=== PATIENT | female | born 1990 | race African-American/Black ===

== ENCOUNTER 2016-12-05 18:34 | Emergency (ER) | payer OTHER ==
[~2016-12-05] VITALS: Ht 170.2 cm; Wt 61.2 kg
[~2016-12-05 18:34] MED LIST: ZOFRAN ODT4 MG PO
[2016-12-05 19:07] LABS: URINE BILIRUBIN NEGATIVE (Negative); URINE BLOOD NEGATIVE (Negative); URINE COLOR YELLOW; URINE GLUCOSE-RANDOM* NEGATIVE (Negative); URINE KETONES NEGATIVE (Negative); URINE LEUKOCYTES-REFLEX NEGATIVE (Negative); URINE PROTEIN (DIPSTICK) NEGATIVE (Negative); URINE UROBILINOGEN 0.2 E.U./dl (0.2-1.0)
[2016-12-05] MEDS ORDERED: VENTOLIN HFA 1818 GM INH (19:15)
[2016-12-05 19:31] LABS: ABSOLUTE NEUTROPHILS 2.7 thou/uL (1.4-8.2); BASOPHILS 1.4 % (0.0-2.0); EOSINOPHILS 3.4 % (0.0-3.0); HEMATOCRIT 33.7 % (37.0-47.0); HEMOGLOBIN 10.7 gm/dL (12.0-15.0); LYMPHOCYTES 46.3 % (24.0-44.0); MCH 23.7 pg (26.0-34.0); MCHC 31.7 % (28.0-37.0); MCV 74.9 fL (80.0-100.0); MONOCYTES 7.8 % (1.0-8.0); PLATELET COUNT 190 thou/uL (150-400); POLYS 41.1 % (36.0-66.0); RBC 4.49 mil/uL (4.20-5.00); RDW 18.7 % (10.5-14.5); WBC 6.6 thou/uL (4.0-11.0)
[2016-12-05 19:32] LABS: MANUAL DIFF NO
[2016-12-05 19:39] LABS: CALCIUM 8.3 mg/dL (8.5-10.1); CREATININE 0.6 mg/dL (0.6-1.3); POTASSIUM 3.6 mmol/L (3.5-5.1)
[2016-12-05 19:45] LABS: ALBUMIN 3.7 g/dL (3.4-5.0); TOTAL BILIRUBIN 0.2 mg/dL (<0.1-1.0); TOTAL PROTEIN 7.2 g/dL (6.4-8.2)
[2016-12-05 22:30] VITALS: BP 124/82
== END 2016-12-05 22:31 | disposition home or self-care (01) ==
LOC: ER 18:34
PROVIDERS: Emergency Medicine
DX: O99.611 Diseases of the digestive system complicating pregnancy, first trimester (principal); K59.00 Constipation, unspecified; O99.511 Diseases of the respiratory system complicating pregnancy, first trimester; O99.311 Alcohol use complicating pregnancy, first trimester; Z3A.01 Less than 8 weeks gestation of pregnancy; F10.99 Alcohol use, unspecified with unspecified alcohol-induced disorder; Z88.1 Allergy status to other antibiotic agents; R10.84 Generalized abdominal pain

== ENCOUNTER 2018-05-04 17:20 | Emergency (ER) | payer OTHER ==
[~2018-05-04] VITALS: Ht 170.2 cm; Wt 61.2 kg
[~2018-05-04 17:20] MED LIST changes: +VENTOLIN HFA 1818 GM INH
[2018-05-04] MEDS ORDERED: FAMOTIDINE 10 M10 MG PO (18:11)
[2018-05-04] MEDS ORDERED: PREDNISONE 20 M20 MG PO (18:11)
[2018-05-04 18:15] VITALS: BP 126/77
== END 2018-05-04 18:16 | disposition home or self-care (01) ==
LOC: ER 17:20
DX: L23.9 Allergic contact dermatitis, unspecified cause (principal); J45.909 Unspecified asthma, uncomplicated; Z88.1 Allergy status to other antibiotic agents